=== PATIENT | male | born 1990 | race African-American/Black ===

== ENCOUNTER 2018-12-27 04:22 | Emergency (ER) | payer OTHER ==
[~2018-12-27] VITALS: Ht 177.8 cm; Wt 67.1 kg
[2018-12-27 04:26] VITALS: BP 123/78
[2018-12-27] MEDS ORDERED: HYDROCODONE/APAP 5/325MG 1 EACH TABLET ONE (04:41)
[2018-12-27] MEDS ORDERED: IBUPROFEN 600 MG TABLET PO ONE ×2 (04:41→05:00)
--- NOTE | 2018-12-27 04:51 | NUR ---
PT REC'D A WARM PACK UPON D/C HOME.
[2018-12-27] MEDS ORDERED: HYDROCODONE/APAP 5/325MG 1 EACH TABLET PO ONE (05:00)
== END 2018-12-27 04:50 | disposition home or self-care (01) ==
LOC: ER 04:26
DX: K08.89 Other specified disorders of teeth and supporting structures (principal); J45.909 Unspecified asthma, uncomplicated; F17.200 Nicotine dependence, unspecified, uncomplicated
CPT/HCPCS: 99283; A4606; Z7610

== ENCOUNTER 2019-02-02 00:04 | Emergency (ER) | payer OTHER ==
[~2019-02-02] VITALS: Ht 180.3 cm; Wt 67.6 kg
[2019-02-02 00:09] VITALS: BP 106/76
[2019-02-02] MEDS ORDERED: ACETAMINOPHEN ES 500 MG TABLET ONE (00:55)
[2019-02-02] MEDS ORDERED: ACETAMINOPHEN ES 500 MG TABLET PO ONE (01:00)
== END 2019-02-02 03:40 | disposition home or self-care (01) ==
LOC: ER 00:13
DX: S16.1XXA Strain of muscle, fascia and tendon at neck level, initial encounter (principal); S30.1XXA Contusion of abdominal wall, initial encounter; J45.909 Unspecified asthma, uncomplicated; F17.200 Nicotine dependence, unspecified, uncomplicated; V49.49XA Driver injured in collision with other motor vehicles in traffic accident, initial encounter; Y93.89 Activity, other specified; Y92.413 State road as the place of occurrence of the external cause; Y99.8 Other external cause status

== ENCOUNTER 2022-03-19 13:04 | Emergency (ER) | payer OTHER ==
[~2022-03-19] VITALS: Ht 180.3 cm; Wt 70.3 kg
--- NOTE | 2022-03-19 13:22 | NUR ---
ER BED 6. PT BIBS PENILE DISCHARGE AND RECTAL PAIN WHEN HAVING A BOWEL MOVEMENT SINCE YESTERDAY. URINE HAYDEN COLOR. PT STATES GROIN PAIN 07/07. DO CHEST PAIN. NO SOB.
[2022-03-19] MEDS ORDERED: KETOROLAC TROMETHAMINE INJ 30 MG/ML VIAL IV ONE (14:30)
[2022-03-19] MEDS ORDERED: DICYCLOMINE HCL 10 MG CAPSULE PO ONE ×2 (14:30→14:55)
[2022-03-19 14:54] LABS: BILIRUBIN,URINE SMALL (NEGATIVE); COLOR,URINE AMBER (YELLOW); LEUKOCYTE ESTERASE ,URINE NEGATIVE (NEGATIVE); NITRITE, URINE NEGATIVE (NEGATIVE); PROTEIN,URINE TRACE mg/dl (NEGATIVE); UGLUCOSE NEGATIVE (NEGATIVE); UROBILINOGEN,URINE 0.2 EU/dL (0.2)
[2022-03-19] MEDS ORDERED: KETOROLAC TROMETHAMINE INJ 30 MG/ML VIAL ONE (14:55)
[2022-03-19] MEDS ORDERED: KETOROLAC TROMETHAMINE INJ 30 MG/ML VIAL IM ONE (15:00)
--- NOTE | 2022-03-19 15:00 | NUR ---
PT LEFT CT SCAN
[2022-03-19] MEDS ORDERED: IV NS 0.9% 250 ML IV ONE (15:06)
[2022-03-19] MEDS ORDERED: IOHEXOL-300 100 ML VIAL IV ONE (15:06)
[2022-03-19 15:18] LABS: BASOPHILS % (AUTO) 0.2 % (0.0-2.0); EOSINOPHILS % (AUTO) 0.5 % (0.0-6.0); HEMATOCRIT 44 % (39-51); HEMOGLOBIN 14.8 g/dL (13.5-17.5); LYMPHOCYTES # (AUTO) 1.6 K/uL (0.8-4.8); LYMPHOCYTES % (AUTO) 17.1 % (20.0-44.0); MEAN CORPUSCULAR HGB CONC 34 g/dl (31.0-36.0); MEAN CORPUSCULAR VOLUME 93 fL (80-96); MONOCYTES % (AUTO) 10.1 % (2.0-12.0); NEUTROPHILS # (AUTO) 6.8 K/uL (1.8-8.9); NEUTROPHILS % (AUTO) 72.1 % (43.0-81.0); PLATELET COUNT (AUTO) 242 K/uL (150-450); RED BLOOD CELL COUNT(AUTO) 4.72 MIL/uL (4.5-6.0); WHITE BLOOD COUNT (AUTO) 9.5 K/uL (4.3-11.0)
--- NOTE | 2022-03-19 15:30 | NUR ---
PT RETURNED FROM CT SCAN WITH L AC 20G PLACED BY RADIOLOGY.
[2022-03-19 15:37] LABS: ALBUMIN 4.2 g/dL (3.4-5.0); BILIRUBIN,DIRECT 0.2 mg/dL (0.0-0.2); BILIRUBIN,TOTAL 0.8 mg/dL (0.2-1.0); CALCIUM, SERUM 9.5 mg/dL (8.5-10.1); CREATININE 1.2 mg/dL (0.6-1.3); POTASSIUM 3.8 mmol/L (3.5-5.1); TOTAL PROTEIN, SERUM 8.8 g/dL (6.4-8.2)
[2022-03-19 16:13] LABS: SQUAMOUS EPITHELIAL CELL,UR Few /HPF (None Seen)
[2022-03-19 16:14] LABS: RBC,URINE 0-2 /HPF (0-2); URINE AMORPHOUS URATE Moderate /HPF (None Seen); WBC,URINE 0-2 /HPF (0-3)
[2022-03-19 16:21] LABS: BACTERIA,URINE Few /HPF (None Seen)
[2022-03-19] MEDS ORDERED: DOXYCYCLINE HYCLATE (100 MG) 100 MG TABLET PO ONE (17:00)
[2022-03-19] MEDS ORDERED: CEFTRIAXONE 1GM BAG (ER ONLY) 1 GM/50 ML PIGGYBACK IV ONE (17:00)
[2022-03-19] MEDS ORDERED: CEFTRIAXONE 1GM BAG (ER ONLY) 50 ML IV ONE (17:08)
[2022-03-19] MEDS ORDERED: DOXYCYCLINE HYCLATE (100 MG) 100 MG TABLET ONE (17:08)
[2022-03-19] MEDS ORDERED: DOXY-326 PO (17:24)
--- NOTE | 2022-03-19 18:04 | NUR ---
Patient discharged to home in stable condition. Written and verbal after care instructions given. Patient verbalizes understanding of instruction. IV removed. Catheter intact and site benign. Pressure and 4x4 applied to site. No bleeding noted.
[2022-03-19 18:06] VITALS: BP 120/65
== END 2022-03-19 18:06 | disposition home or self-care (01) ==
LOC: ER 13:06
DX: K62.89 Other specified diseases of anus and rectum (principal); J45.909 Unspecified asthma, uncomplicated; F17.200 Nicotine dependence, unspecified, uncomplicated; Z60.2 Problems related to living alone; Z79.899 Other long term (current) drug therapy
CPT/HCPCS: 36415; 74177; 80048; 80076; 81001; 82550; 83690; 85025; 85730; 87491; 87591; 87806; 96365; 96372; 99285; J0696; J1885; J7050; Q9967; 86780